=== PATIENT | female | born 1985 | race American Indian/Alaskan Native ===

== ENCOUNTER 2016-12-04 21:48 | Emergency (ER) | payer MEDICAID ==
--- NOTE | 2016-12-05 00:17 | Emergency Department Report ---
ED Recheck HPI - General Chief Complaint: Laceration/Recheck/Suture Stated Complaint: EAR PAIN/POST SURGERY Time Seen by Provider: 12/04/16 23:49 Source: patient Mode of arrival: Ambulatory Limitations: No Limitations - History of Present Illness Initial Comments: Patient comes into the ER today with complaints of her right ear lobe bleeding. Patient states that yesterday she was seen by plastic surgeon and had keloids removed from both of her earlobes. Patient states that she was in the shower today when she noticed that her right earlobe was bleeding. Patient denies any pain. Patient came in primarily because she was concerned of the bleeding. MD Complaint: wound re-check - Related Data Previous Rx's Medication Instructions Recorded Last Taken Type Ibuprofen [Motrin] 600 mg PO Q8H PRN #40 tablet 10/10/14 Unknown Rx Sulfamethoxazole/Trimethoprim 1 each PO BID #20 tablet 10/10/14 Unknown Rx [Bactrim Ds] Allergies Allergy/AdvReac Type Severity Reaction Status Date / Time No Known Allergies Allergy Unverified 10/09/14 22:52 ED Review of Systems ROS: Stated complaint: EAR PAIN/POST SURGERY Other details as noted in HPI Constitutional: denies: chills, fever Eyes: denies: eye pain, eye discharge, vision change ENT: other (right earlobe bleeding). denies: ear pain, throat pain Respiratory: denies: cough, shortness of breath, wheezing Cardiovascular: denies: chest pain, palpitations Endocrine: no symptoms reported Gastrointestinal: denies: abdominal pain, nausea, diarrhea Genitourinary: denies: urgency, dysuria, discharge Musculoskeletal: denies: back pain, joint swelling, arthralgia Skin: denies: rash, lesions Neurological: denies: headache, weakness, paresthesias Psychiatric: denies: anxiety, depression Hematological/Lymphatic: denies: easy bleeding, easy bruising ED Past Medical Hx - Past Medical History Previous Medical History?: No - Surgical History Past Surgical History?: No - Social History Smoking Status: Never Smoker Substance Use Type: None - Medications Home Medications: Home Medications Medication Instructions Recorded Confirmed Last Taken Type Ibuprofen [Motrin] 600 mg PO Q8H PRN #40 tablet 10/10/14 Unknown Rx Sulfamethoxazole/Trimethoprim 1 each PO BID #20 tablet 10/10/14 Unknown Rx [Bactrim Ds] ED Physical Exam - General Limitations: No Limitations General appearance: alert, in no apparent distress - Head Head exam: Present: atraumatic, normocephalic - Eye Eye exam: Present: normal appearance - ENT ENT exam: Present: normal orophraynx, mucous membranes moist, TM's normal bilaterally, other (bilateral earlobe swelling and wound closure consistent with recent surgery. On inferior margins of right earlobe, there is dried blood without active bleeding.) - Neck Neck exam: Present: normal inspection - Respiratory Respiratory exam: Present: normal lung sounds bilaterally. Absent: respiratory distress - Cardiovascular Cardiovascular Exam: Present: regular rate, normal rhythm. Absent: systolic murmur, diastolic murmur, rubs, gallop - GI/Abdominal GI/Abdominal exam: Present: soft, normal bowel sounds - Extremities Exam Extremities exam: Present: normal inspection - Back Exam Back exam: Present: normal inspection - Neurological Exam Neurological exam: Present: alert, oriented X3 - Psychiatric Psychiatric exam: Present: normal affect, normal mood - Skin Skin exam: Present: warm, dry, intact, normal color. Absent: rash ED Course Vital Signs 12/04/16 22:08 Temperature 98.7 F Pulse Rate 73 Respiratory 18 Rate Blood Pressure 121/67 [Right] O2 Sat by Pulse 98 Oximetry ED Recheck MDM - Medical Decision Making Patient is nontoxic and hemodynamically stable. Right earlobe cleaned with saline to explore area of bleeding. On inferior margins of right earlobe there appears to be linear laceration repair with minimal bleeding. Wound sealed with surgical glue in the ER and no active bleeding after repair. Patient tolerated procedure very well without any complications. I've instructed patient to follow up with her plastic surgeon and let them know that she had come to the ER. Patient is in agreement with treatment plan patient is stable for discharge. Critical care attestation.: If time is entered above; I have spent that time in minutes in the direct care of this critically ill patient, excluding procedure time. ED Disposition Clinical Impression: Encounter for post surgical wound check Disposition: - TO HOME OR SELFCARE Is pt being admited?: No Does the pt Need Aspirin: No Condition: Good Instructions: Suture Care (ED), Skin Adhesive Care (ED) Referrals: PRIMARY CARE, [Primary Care Provider] - 3-5 Days plastic surgeon, your [Other] - 3-5 Days Time of Disposition: 00:17
[2016-12-05 00:25] VITALS: BP 127/77
== END 2016-12-05 00:25 | disposition home or self-care (01) ==
LOC: ED 21:48
DX: L76.22 Postprocedural hemorrhage of skin and subcutaneous tissue following other procedure (principal)
CPT/HCPCS: 99282